=== PATIENT | male | born 1955 | race Caucasian/White ===

== ENCOUNTER → 2019-04-21 | Outpatient (CLI) | payer MEDICARE ==
--- NOTE | 2019-04-21 12:57 | Diagnostic Imaging Report ---
PROCEDURE: CT lumbar spine without contrast. TECHNIQUE: Multiple contiguous axial images were obtained through the lumbar spine without the use of intravenous contrast. Sagittal and coronal reformations were then performed. Auto Exposure Controls were utilized during the CT exam to meet ALARA standards for radiation dose reduction. INDICATION: Back pain, fusion 6 months ago. COMPARISON: Study correlated with CT performed in 2010. FINDINGS: Bilateral chronic L5 spondylolysis defects again noted. Slight grade 1 anterolisthesis of L5 on S1 is about 3 mm and previously 4-5 mm. Interval posterior fusion with bipedicular screws and vertical rods at the L5-S1 level have been placed. There is no hardware fracture and no suspicious lucencies adjacent to the screws. An interbody device is placed at the L5-S1 disc space level. It appears to be within the confines of the endplates. At this point, no appreciable bony bridging across the L5-S1 endplates. There is at least some incorporation of the device with the L5 endplate but no definite bony incorporation with the S1 superior endplate. No convincing evidence for pseudoarthrosis at the surgical time interval is found. Left-sided laminotomy at L5 has been performed. No fluid collection. IMPRESSION: Interval posterior and interbody fusion L5-S1 with improvements in listhesis. Partial incorporation of the device with the L5 inferior endplate but no appreciable branching into the S1 endplate, however, at this time interval, pseudoarthrosis could not be confirmed. Consider followup. No hardware fracture. No adverse development. Decompression with laminectomy but no fluid collection. Dictated by: Dictated on workstation # [id number]
== END ==
LOC: RAD 07:50
PROVIDERS: ATTEND Physician Assistant
DX: M43.16 Spondylolisthesis, lumbar region (principal); Z98.1 Arthrodesis status
CPT/HCPCS: 72131

== ENCOUNTER 2019-08-12 08:45 | Outpatient (RCR) | payer MEDICARE | END 2019-08-12 09:59 | disposition home or self-care (01) | PROVIDERS: ATTEND Physician Assistant | DX: M54.9 Dorsalgia, unspecified (principal); Z98.1 Arthrodesis status ==

== ENCOUNTER 2019-11-19 10:00 | Outpatient (CLI) | payer MEDICARE ==
[~2019-11-19] VITALS: Ht 175.3 cm; Wt 126.3 kg
[~2019-11-19 10:00] MED LIST: GBPN600T PO
== END 2019-11-19 10:11 | disposition home or self-care (01) ==
LOC: PREOP 10:00
PROVIDERS: ATTEND Specialist
DX: Z01.818 Encounter for other preprocedural examination (principal)

== ENCOUNTER 2020-01-18 09:43 | Outpatient (RCR) | payer MEDICARE ==
[~2020-01-18] VITALS: Ht 175.3 cm; Wt 126.3 kg
== END 2020-01-18 15:09 | disposition home or self-care (01) ==
LOC: PREOP 09:43
PROVIDERS: ATTEND Specialist
DX: Z01.812 Encounter for preprocedural laboratory examination (principal)
CPT/HCPCS: 87635

== ENCOUNTER 2020-01-22 07:28 | Day surgery (SDC) | payer MEDICARE ==
[~2020-01-22] VITALS: Ht 175.3 cm; Wt 126.3 kg
[2020-01-22] MEDS ORDERED: LIDOCAINE PF 1% 2 ML VIAL IR PRN (07:45)
[2020-01-22] MEDS ORDERED: POVIDONE (BETADINE) OPHTH SOLN 5% 30 ML OP ONE (07:45)
[2020-01-22] MEDS ORDERED: MOXIFLOXACIN OPHTH SOLN 5 MG/ML 0.3 ML SYRINGE OP ONE (07:45)
[2020-01-22] MEDS ORDERED: TIMOLOL MALEATE 0.5% 5 ML (TIMOPTIC) BTL OU PRN (07:45)
[2020-01-22] MEDS: TETRACAINE 0.5% OPHTH SOLN 4 ML BTL (SINGLE DOSE ONLY) OU PRN ×4 (08:05→08:27)
[2020-01-22 08:12] VITALS: BP 139/99
[2020-01-22] MEDS: PHENYLEPHRINE 10% OPHTH (NEO-SYN) 5 ML BTL OU SCH ×3 (08:17→08:27)
[2020-01-22] MEDS: CYCLOPENTOLATE 1% (CYCLOGYL) 2 ML DROPS OP SCH ×3 (08:17→08:27)
[2020-01-22] MEDS ORDERED: MIDAZOLAM 2 MG/2 ML (VERSED) VIAL ONE (09:09)
--- NOTE | 2020-01-22 09:10 | Ophthalmologist Pre-Op Note ---
Pre-Operative Progress Note H&P Reviewed The H&P was reviewed, patient examined and no changes noted. Date H&P Reviewed: January 22, 2020 Time H&P Reviewed: 09:10 Pre-Op Dx Cataract, Right Eye LUCAS DE LA CRUZ MD January 22, 2020 09:10
--- OUTSIDE RECORDS SUMMARY | 2020-01-22 09:17 | XMS REPORT | Continuity of Care Document ---
Author Organization Unknown Address Unknown Phone Unavailable Allergies Active Description Code Type Severity Reaction Onset Reported/Identified Relationship to Patient Clinical Status Yes No Known Drug Allergies [id number] Drug Allergy Unknown N/A 07/30/2011 Medications There is no data. Problems Date Dx Coded Attending Type Code Diagnosis Diagnosed By SWEET PA, BHAVIN R Ot M54.9 DORSALGIA, UNSPECIFIED SWEET PA, BHAVIN R Ot Z98.1 ARTHRODESIS STATUS 08/01/1508 LUCAS DE LA CRUZ MD Ot Z01.812 ENCOUNTER FOR PREPROCEDURAL LABORATORY E 05/14/2019 SWEET PA, BHAVIN R Ot M43. 16 SPONDYLOLISTHESIS, LUMBAR REGION 05/14/2019 SWEET PA, BHAVIN R Ot Z98. 1 ARTHRODESIS STATUS 07/09/2019 SWEET PA, BHAVIN R Ot M54. 9 DORSALGIA, UNSPECIFIED 07/09/2019 SWEET PA, BHAVIN R Ot Z98. 1 ARTHRODESIS STATUS 07/28/2019 SWEET PA, BHAVIN R Ot M54. 9 DORSALGIA, UNSPECIFIED 07/28/2019 SWEET PA, BHAVIN R Ot Z98. 1 ARTHRODESIS STATUS 08/12/2019 SWEET PA, BHAVIN R Ot M54. 9 DORSALGIA, UNSPECIFIED 08/12/2019 SWEET PA, BHAVIN R Ot Z98. 1 ARTHRODESIS STATUS 11/13/2019 SWEET PA, BHAVIN R Ot M43. 16 SPONDYLOLISTHESIS, LUMBAR REGION 11/13/2019 SWEET PA, BHAVIN R Ot Z98. 1 ARTHRODESIS STATUS 11/20/2019 LUCAS DE LA CRUZ MD Ot Z01.818 ENCOUNTER FOR OTHER PREPROCEDURAL EXAMIN Procedures There is no data. Results Test Result Range Coronavirus SARS-CoV-2 SO 2019 - 0 13:00 Coronavirus Ab [Units/volume] in Serum Negative Negative Encounters ACCT No. Visit Date/Time Discharge Status Pt. Type Provider Facility Loc./Unit Complaint [id number] 01/18/2020 09:43:00 15:09:00 DIS Outpatient LUCAS DE LA CRUZ MD [facility] PREOP CATARACT RIGHT EYE [id number] 11/20/2019 11:30:00 23:59:59 CLS Preadmit LUCAS DE LA CRUZ MD [facility] CATARACT RIGHT EYE [id number] 11/19/2019 10:00:00 10:11:00 DIS Outpatient LUCAS DE LA CRUZ MD [facility] PREOP CATARACT RIGHT EYE [id number] 08/12/2019 08:45:00 09:59:00 DIS Outpatient BHAVIN BRAGA [facility] REHAB S/P FUSION BACK PAIN [id number] 04/21/2019 07:50:00 019 23:59:59 CLS Outpatient BHAVIN BRAGA [facility] RAD LUMBAR FUSION [id number] 06/03/2013 08:50:00 013 23:59:59 CLS Outpatient [id number] 01/29/2020 09:30:00 P EN Margemit LUCAS DE LA CRUZ MD [facility] CATARACT LEFT EYE [id number] 01/22/2020 07:28:[address] Outpatient LUCAS DE LA CRUZ MD [facility] CATARACT RIGHT EYE
[2020-01-22] MEDS ORDERED: acetaZOLAMIDE ER 500 MG CAP (DIAMOX SEQUELS) PO ONE (09:30)
--- NOTE | 2020-01-22 09:38 | Ophthalmology Operative Report ---
Cataract removal/placement IOL PREOPERATIVE DIAGNOSIS: Cataract Right Eye POSTOPERATIVE DIAGNOSIS: Cataract Right Eye PROCEDURE: Cataract removal and placement of posterior chamber implant, right eye SURGEON: Doyle De La Cruz ANESTHESIA: Topical with sedation COMPLICATIONS: None ESTIMATED BLOOD LOSS: Minimal DESCRIPTION OF PROCEDURE: After proper informed consent was obtained, the patient, a 64 male, was taken to the Operating Room and the right eye was anesthetized with tetracaine. The right eye was then prepped and draped in the usual manner. A wire lid speculum was placed. A paracentesis was made at the left hand position. Preservative free lidocaine was injected into the anterior chamber followed by viscoelastic. A clear corneal incision was made in the temporal position. A capsulorrhexis was preformed and the central nuclear and cortical material were removed. The posterior capsule was polished and Sid 23.5 AU00T0 IOL was placed into the capsular bag. The residual viscoelastic was aspirated and balanced saline solution was injected into the anterior chamber. Moxifloxacin was injected into the anterior chamber. The wound was checked and found to be water tight. The patient tolerated the procedure well without complications. DOYLE DE LA CRUZ MD January 22, 2020 09:38
[2020-01-22 09:45] VITALS: BP 125/84
--- NOTE | 2020-01-22 11:22 | Anesthesia-General Post-Op ---
MAC Patient Condition Mental Status/LOC: Same as Preop Cardiovascular: Satisfactory Nausea/Vomiting: Absent Respiratory: Satisfactory Pain: Controlled Complications: Absent Post Op Complications Complications None Follow Up Care/Instructions Patient Instructions None needed. Anesthesiology Discharge Order Discharge Order Patient is doing well, no complaints, stable vital signs, no apparent adverse anesthesia problems. No complications reported per nursing. CAROL ANN GHOSH CRNA January 22, 2020 11:22
== END 2020-01-22 09:45 | disposition home or self-care (01) ==
LOC: SDC 07:28
PROVIDERS: ATTEND Specialist

== ENCOUNTER 2020-01-29 08:05 | Day surgery (SDC) | payer MEDICARE ==
[~2020-01-29] VITALS: Ht 172.7 cm; Wt 126.3 kg
[2020-01-29 08:10] VITALS: BP 147/99
[2020-01-29] MEDS ORDERED: MOXIFLOXACIN OPHTH SOLN 5 MG/ML 0.3 ML SYRINGE OP ONE (08:15)
[2020-01-29] MEDS ORDERED: LIDOCAINE PF 1% 2 ML VIAL IR PRN (08:15)
[2020-01-29] MEDS ORDERED: TIMOLOL MALEATE 0.5% 5 ML (TIMOPTIC) BTL OU PRN (08:15)
[2020-01-29] MEDS ORDERED: POVIDONE (BETADINE) OPHTH SOLN 5% 30 ML OP ONE (08:15)
[2020-01-29] MEDS: TETRACAINE 0.5% OPHTH SOLN 4 ML BTL (SINGLE DOSE ONLY) OU PRN ×4 (08:25→08:41)
[2020-01-29] MEDS: CYCLOPENTOLATE 1% (CYCLOGYL) 2 ML DROPS OP SCH ×3 (08:31→08:41)
[2020-01-29] MEDS: PHENYLEPHRINE 10% OPHTH (NEO-SYN) 5 ML BTL OU SCH ×3 (08:31→08:41)
--- OUTSIDE RECORDS SUMMARY | 2020-01-29 08:44 | XMS REPORT | Continuity of Care Document ---
Author Organization Unknown Address Unknown Phone Unavailable Allergies Active Description Code Type Severity Reaction Onset Reported/Identified Relationship to Patient Clinical Status Yes No Known Drug Allergies [id number] Drug Allergy Unknown N/A 07/30/2011 Medications There [...] Status Pt. Type Provider Facility Loc./Unit Complaint [id number] 01/22/2020 07:28:00 09:45:00 DIS Outpatient LUCAS DE LA CRUZ MD [facility] CATARACT RIGHT EYE [id number] 01/18/2020 09:43:00 15:09:00 DIS Outpatient LUCAS DE LA CRUZ MD [facility] PREOP CATARACT RIGHT EYE [id number] 11/20/2019 11:30:00 23:59:59 CLS LUCAS Sewell MD [facility] CATARACT RIGHT EYE [id number] 11/19/2019 10:00:00 10:11:00 DIS Outpatient LUCAS DE LA CRUZ MD [facility] PREOP CATARACT RIGHT EYE [id number] 08/12/2019 08:45:00 09:59:00 DIS Outpatient BHAVIN BRAGA [facility] REHAB S/P FUSION BACK PAIN [id number] 04/21/2019 07:50:00 019 23:59:59 CLS Outpatient BHAVIN BRAGA [facility] RAD LUMBAR FUSION [id number] 06/03/2013 08:50:00 013 23:59:59 CLS Outpatient [id number] 01/29/2020 09:30:00 P EN LUCAS Sewell MD [facility] CATARACT LEFT EYE
[2020-01-29] MEDS ORDERED: MIDAZOLAM 2 MG/2 ML (VERSED) VIAL ONE (09:10)
--- NOTE | 2020-01-29 09:14 | Ophthalmologist Pre-Op Note ---
Pre-Operative Progress Note H&P Reviewed The H&P was reviewed, patient examined and no changes noted. Date H&P Reviewed: January 29, 2020 Time H&P Reviewed: 09:14 Pre-Op Dx Cataract, Left Eye LUCAS DE LA CRUZ MD January 29, 2020 09:14
[2020-01-29] MEDS ORDERED: acetaZOLAMIDE ER 500 MG CAP (DIAMOX SEQUELS) PO ONE (09:30)
--- NOTE | 2020-01-29 09:36 | Ophthalmology Operative Report ---
Cataract removal/placement IOL PREOPERATIVE DIAGNOSIS: Cataract Left Eye POSTOPERATIVE DIAGNOSIS: Cataract Left Eye PROCEDURE: Cataract removal and placement of posterior chamber implant, left eye SURGEON: Doyle De La Cruz ANESTHESIA: Topical with sedation COMPLICATIONS: None ESTIMATED BLOOD LOSS: Minimal DESCRIPTION OF PROCEDURE: After proper informed consent was obtained, the patient, a 64 male, was taken to the Operating Room and the left eye was anesthetized with tetracaine. The left eye was then prepped and draped in the usual manner. A wire lid speculum was placed. A paracentesis was made at the left hand position. Preservative free lidocaine was injected into the anterior chamber followed by viscoelastic. A clear corneal incision was made in the temporal position. A capsulorrhexis was preformed and the central nuclear and cortical material were removed. The posterior capsule was polished and an Sid 23.0 AU00T0 was placed into the capsular bag. The residual viscoelastic was aspirated and balanced saline solution was injected into the anterior chamber. Moxifloxacin was injected into the anterior chamber. The wound was checked and found to be water tight. The patient tolerated the procedure well without complications. DOYLE DE LA CRUZ MD January 29, 2020 09:36
[2020-01-29 09:45] VITALS: BP 146/92
--- NOTE | 2020-01-29 12:40 | Anesthesia-General Post-Op ---
MAC Patient Condition Mental Status/LOC: Same as Preop Cardiovascular: Satisfactory Nausea/Vomiting: Absent Respiratory: Satisfactory Pain: Controlled Complications: Absent Post Op Complications Complications None Follow Up Care/Instructions Patient Instructions None needed. Anesthesiology Discharge Order Discharge Order Patient is doing well, no complaints, stable vital signs, no apparent adverse anesthesia problems. No complications reported per nursing. RICHARD SOLANO CRNA January 29, 2020 12:40
== END 2020-01-29 09:45 | disposition home or self-care (01) ==
LOC: SDC 08:05
PROVIDERS: ATTEND Specialist
DX: H25.12 Age-related nuclear cataract, left eye (principal); E66.01 Morbid (severe) obesity due to excess calories; Z68.41 Body mass index [BMI] 40.0-44.9, adult; Z79.899 Other long term (current) drug therapy; Z87.891 Personal history of nicotine dependence; Z80.1 Family history of malignant neoplasm of trachea, bronchus and lung

== ENCOUNTER 2020-12-25 09:38 | Emergency (ER) | payer MEDICARE ==
[~2020-12-25] VITALS: Ht 172.7 cm; Wt 131.8 kg
[2020-12-25] MEDS ORDERED: ASPIRIN 81 MG CHEW (CHILDREN'S ASA) ONE (10:09)
--- NOTE | 2020-12-25 10:15 | ED Cardiac General ---
History of Present Illness General Chief Complaint: Cardiac/General Problems Stated Complaint: SOB,CHEST TIGHTNESS Nursing Triage Note: AMB TO ROOM X 1 WEEK AND FELT SOA AND CHEST PRESSURE WORSE WHEN LYING DOWN. HAS HAD BOTH COVID VACCAINE . Source: patient Exam Limitations: no limitations History of Present Illness Date Seen by Provider: Dec 25, 2020 Time Seen by Provider: 09:55 Initial Comments Patient is a 65-year-old male who presents to the emergency department today with a chief complaint of progressive exertional dyspnea, chest tightness, pre ssure when laying flat or reclining. Patient states that he has had this chest tightness for "weeks". He states that it is currently about a "4". It is worse anytime he gets up and does any activity. The tightness/pressure does not radiate anywhere. He states a couple of weeks ago he had an episode where he got up out of his recliner chair and felt lightheaded and dizzy and had chest tightness with nausea and diaphoresis. This spontaneously resolved. Patient denies being a diabetic. He is not on medications for hypertension. He does have a primary care doctor and he does his yearly well visits. He quit smoking 5 or 6 years ago. He has no family history of coronary artery disease that he is aware of. He denies recent illness such as fevers, chills, URI symptoms, GI or complaints. All other review of systems reviewed and negative except as stated. Timing/Duration: 1 week, getting worse Severity: moderate Activities at Onset: activity Prior CP/Workup: no prior chest pain, no prior cardiac workup NTG SL [employer]TING SUPERVISOR: No ASA po [employer]PERVISOR: No Allergies and Home Medications Allergies Coded Allergies: No Known Drug Allergies (Unverified , 07/30/11) Home Medications No Active Prescriptions or Reported Meds Patient Home Medication List Home Medication List Reviewed: Yes Review of Systems Review of Systems Constitutional: see HPI EENTM: No Symptoms Reported Respiratory: SOA With Exertion, SOA at Rest Cardiovascular: Chest Pain, Palpitations Gastrointestinal: No Symptoms Reported Genitourinary: No Symptoms Reported Musculoskeletal: no symptoms reported Skin: no symptoms reported Psychiatric/Neurological: No Symptoms Reported All Other Systems Reviewed Negative Unless Noted: Yes Past Wjehjtq-Obprfg-Cgauxo Hx Patient Social History Alcohol Use: Denies Use Smoking Status: Never a Smoker Recent Infectious Disease Expo: No Immunizations Up To Date Date of Pneumonia Vaccine: May 03, 2012 Date of Influenza Vaccine: May 03, 2012 Past Medical History Surgeries: Yes Orthopedic Respiratory: No Cardiac: No Neurological: No Genitourinary: No Gastrointestinal: No Endocrine: No HEENT: No Integumentary: No Physical Exam Vital Signs Vital Signs - First Documented 12/25/20 09:38 Temp 36.8 Pulse 115 Resp 22 B/P (MAP) 144/92 (109) Pulse Ox 93 O2 Delivery Room Air Capillary Refill : Less Than 3 Seconds Height, Weight, BMI Height: '" Weight: lbs. oz. kg; 44.00 BMI Method:Estimated General Appearance: No Apparent Distress, WD/WN HEENT: PERRL/EOMI Neck: Normal Inspection Respiratory: Lungs Clear, Normal Breath Sounds, No Accessory Muscle Use, No Respiratory Distress Cardiovascular: Regular Rate, Rhythm, Tachycardia Gastrointestinal: Non Tender, Soft Extremity: Normal Capillary Refill, Normal Inspection, Normal Range of Motion, Pedal Edema (1+ bilateral) Neurologic/Psychiatric: Alert, Oriented x3, No Motor/Sensory Deficits Skin: Normal Color, Warm/Dry Progress/Results/Core Measures Results/Orders Lab Results Laboratory Tests Test 12/25/20 09:40 Range/Units White Blood Count 7.1 4.3-11.0 10^3/uL Red Blood Count 5.32 4.30-5.52 10^6/uL Hemoglobin 14.7 13.3-17.7 g/dL Hematocrit 46 40-54 % Mean Corpuscular Volume 86 80-99 fL Mean Corpuscular Hemoglobin 28 25-34 pg Mean Corpuscular Hemoglobin Concent 32 32-36 g/dL Red Cell Distribution Width 14.3 10.0-14.5 % Platelet Count 354 130-400 10^3/uL Mean Platelet Volume 10.2 9.0-12.2 fL Immature Granulocyte % (Auto) 0 % Neutrophils (%) (Auto) 67 42-75 % Lymphocytes (%) (Auto) 22 12-44 % Monocytes (%) (Auto) 9 0-12 % Eosinophils (%) (Auto) 1 0-10 % Basophils (%) (Auto) 0 0-10 % Neutrophils # (Auto) 4.8 1.8-7.8 10^3/uL Lymphocytes # (Auto) 1.6 1.0-4.0 10^3/uL Monocytes # (Auto) 0.6 0.0-1.0 10^3/uL Eosinophils # (Auto) 0.1 0.0-0.3 10^3/uL Basophils # (Auto) 0.0 0.0-0.1 10^3/uL Immature Granulocyte # (Auto) 0.0 0.0-0.1 10^3/uL D-Dimer 1.48 H 0.00-0.49 UG/ML Sodium Level 137 135-145 MMOL/L Potassium Level 4.0 3.6-5.0 MMOL/L Chloride Level 99 98-107 MMOL/L Carbon Dioxide Level 29 21-32 MMOL/L Anion Gap 9 5-14 MMOL/L Blood Urea Nitrogen 9 7-18 MG/DL Creatinine 1.05 0.60-1.30 MG/DL Estimat Glomerular Filtration Rate > 60 BUN/Creatinine Ratio 9 Glucose Level 141 H 70-105 MG/DL Calcium Level 9.3 8.5-10.1 MG/DL Total Creatine Kinase 44 30-200 U/L Creatine Kinase MB 1.1 <6.6 NG/ML Troponin I < 0.028 <0.028 NG/ML B-Type Natriuretic Peptide 144.1 H <100.0 PG/ML Thyroid Stimulating Hormone (TSH) 2.43 0.35-4.94 UIU/ML My Orders Orders - RADHA SOLARES MD Ed Iv/Invasive Line Start (12/25/20 10:10) Cbc With Automated Diff (12/25/20 10:10) Basic Metabolic Panel (12/25/20 10:10) Creatine Kinase (12/25/20 10:10) Creatine Kinase Mb (12/25/20 10:10) Troponin I (12/25/20 10:10) BNP (12/25/20 10:10) Chest 1 View, Ap/Pa Only (12/25/20 10:10) Thyroid Stimulating Hormone (12/25/20 10:10) Aspirin Chewable Tablet (Baby Aspirin Ch (12/26/20 09:00) Fibrin Degradation Products (12/25/20 10:15) Aspirin Chewable Tablet (Baby Aspirin Ch (12/25/20 10:09) Ct Angio Chest W (12/25/20 11:08) Iohexol Injection (Omnipaque 350 Mg/Ml 1 (12/25/20 11:30) Received Contrast (Hold Metformin- Contr (12/25/20 11:30) Sodium Chloride Flush (Catheter Flush Sy (12/25/20 11:30) Ns (Ivpb) (Sodium Chloride 0.9% Ivpb Bag (12/25/20 11:30) Furosemide Injection (Lasix Injection) (12/25/20 12:30) Medications Given in ED Current Medications Medications Dose Ordered Sig/Sergio Route Start Time Stop Time Status Last Admin Dose Admin Iohexol 100 ml ONCE ONCE IV 12/25/20 11:30 12/25/20 11:31 DC 12/25/20 11:28 88 ML Sodium Chloride 10 ml NEEDED PRN IV 12/25/20 11:30 12/25/20 11:28 10 ML Sodium Chloride 100 ml ONCE ONCE IV 12/25/20 11:30 12/25/20 11:31 DC 12/25/20 11:28 80 ML Vital Signs/I&O 12/25/20 09:38 Temp 36.8 Pulse 115 Resp 22 B/P (MAP) 144/92 (109) Pulse Ox 93 O2 Delivery Room Air Blood Pressure Mean: 109 Progress Progress Note : Time: 12:26 Progress Note Patient seen and examined, 65-year-old with report of chest tightness and shortness of breath over the last several weeks. Patient states this tightness has been constant. He states his shortness of breath worsens with exertion. Evaluation today includes a physical exam, EKG, chest x-ray, basic laboratory studies including a BNP and TSH. Patient also had CT angiography of the chest. Work-up demonstrates cardiomegaly with mild evidence of congestive failure. His troponin is negative. BNP is 144. He is actually satting fairly well but after CAT scan was down to 89 or 90% so was placed on a little bit of oxygen. Is given Lasix 20 mg here in the department. Patient has no prior history of congestive failure. I feel like given the presentation and chronicity of symptoms that the patient is stable for outpatient follow-up. The patient will be referred to Dr. Harris for follow-up of his cardiomegaly and congestive failure symptoms. He is comfortable and desirous of discharge. He is agreeable with the plan of care. I am not going to put him on Lasix on an outpatient basis but will as stated give him a dose here in the department. I will recommend that he takes a baby aspirin daily as well. He is given good return precautions which include if his chest tightness turns into chest pain or pressure or he has nausea sweating etc. with the pain he needs to come back to the emergency department. He verbalizes understanding. All questions are sought and answered. Patient is stable for discharge. Initial ECG Impression Date: Dec 25, 2020 Initial ECG Impression Time: 09:51 Initial ECG Rate: 103 Initial ECG Rhythm: Normal Sinus, S.Tach Initial ECG Impression: Normal, Nonspecific Changes Comment [facility]'s Diagnostic Imaging Diagonstic Imaging: Xray, CT Plain Films/CT/US/NM/MRI: chest Comments [facility] [place], [place] NAME: DEEPALI HOLM [facility] REC#: [id number] PT STATUS: REG ER : 1955 PHYSICIAN: RADHA SOLARES MD ADMIT DATE: 12/25/20/ER Draft Date of Exam:12/25/20 CHEST 1 VIEW, AP/PA ONLY HISTORY: Chest tightness and shortness of breath COMPARISON: None TECHNIQUE: Frontal view of the chest. FINDINGS: There is mild cardiomegaly with diffuse interstitial prominence. No airspace consolidation is seen. There is no pleural effusion or pneumothorax. IMPRESSION:. Mild cardiomegaly with interstitial prominence, may represent a mild interstitial edema. Dictated on workstation # [id number] Dict: 12/25/20 1027 Trans: 12/25/20 1029 [facility] [id number] Interpreted by: AJ MARIE MD Electronically signed by: [facility] [place] [place] NAME: DEEPALI HOLM [facility] REC#: [id number] PT STATUS: REG ER : 1955 PHYSICIAN: RADHA SOLARES MD ADMIT DATE: 12/25/20/ER Draft Date of Exam:12/25/20 CT ANGIO CHEST W PROCEDURE: CT angiography of the chest with contrast. TECHNIQUE: Multiple contiguous axial images were obtained through the chest after uneventful bolus administration of intravenous contrast. 3D reconstructed CTA MIP acquisitions were also performed. Auto Exposure Controls were utilized during the CT exam to meet ALARA standards for radiation dose reduction. INDICATION: Tachycardia, chest tightness, elevated D-dimer COMPARISON: None FINDINGS: The pulmonary arteries are diagnostic to the segmental level. No filling defects are seen to indicate a pulmonary embolus. The cardiac silhouette is normal in size. There is no pericardial effusion. There is an enlarged lymph node at the aortopulmonary window which measures 1.6 cm in the short axis (image 54 series 2). There is an enlarged subcarinal lymph node which measures 2 cm in short axis (image 80 series 2). There are mildly prominent hilar lymph nodes bilaterally. No axillary lymphadenopathy is seen. There are minimal bilateral pleural effusions. Patchy airspace opacities are seen in the lungs bilaterally, specifically the lower lobes, right greater than left. There is mild prominence of the interlobular septa. No acute osseous abnormality is seen in the thoracic spine. Alignment appears normal. Imaged portions of the upper abdomen demonstrate no acute abnormality. There is a nonspecific hypodense lesion in the right liver which measures 1.5 cm in diameter. Nonemergent follow-up using hepatic contrast protocol could be considered in the future. IMPRESSION: 1. No pulmonary embolus. 2. Airspace opacities in the lower lobes, right greater than left, concerning for infection. 3. Minimal bilateral pleural effusions. 4. Mediastinal and hilar adenopathy. This is likely reactive to the pulmonary findings however malignancy such as lymphoma or metastasis is not excluded. 5. Mild prominence of the interlobular septa, can be seen with mild edema. Dictated on workstation # [id number] Dict: 12/25/20 1138 Trans: 12/25/20 1158 [facility] [id number] Interpreted by: AJ MARIE MD Electronically signed by: Departure Impression Primary Impression: Dyspnea on exertion Additional Impression: CHF with unknown LVEF Disposition: 01 HOME, SELF-CARE Condition: Stable Departure-Patient Inst. Decision time for Depature: 12:29 Referrals: GRISELDA HARRIS MD FACP [facility] SHELTON SOLER MD (PCP/Family) Primary Care Physician Patient Instructions: CHF Add. Discharge Instructions: Please call Dr. Harris's office tomorrow for a follow-up appointment this week. Come back to the emergency department if you develop chest pain or pressure especially with worsening shortness of breath, nausea sweating or any other emergent concerning symptoms. Take a baby aspirin daily. You will also need to follow-up with your primary care physician. Scripts No Active Prescriptions or Reported Meds Copy Copies To 1: GRISELDA HARRIS MD FACP [facility] RDAHA SOLARES MD Dec 25, 2020 10:15
--- NOTE | 2020-12-25 10:30 | Diagnostic Imaging Report ---
HISTORY: Chest tightness and shortness of breath COMPARISON: None TECHNIQUE: Frontal view of the chest. FINDINGS: There is mild cardiomegaly with diffuse interstitial prominence. No airspace consolidation is seen. There is no pleural effusion or pneumothorax. IMPRESSION:. Mild cardiomegaly with interstitial prominence, may represent a mild interstitial edema. Dictated by: Dictated on workstation # [id number]
[2020-12-25 10:31] LABS: BASOPHILS % (AUTO) 0 % (0-10); EOSINOPHILS # (AUTO) 0.1 10^3/uL (0.0-0.3); EOSINOPHILS % (AUTO) 1 % (0-10); HEMATOCRIT 46 % (40-54); HEMOGLOBIN 14.7 g/dL (13.3-17.7); LYMPHOCYTES # (AUTO) 1.6 10^3/uL (1.0-4.0); LYMPHOCYTES % (AUTO) 22 % (12-44); MEAN CORPUSCULAR HEMOGLOBIN 28 pg (25-34); MEAN CORPUSCULAR HGB CONC 32 g/dL (32-36); MEAN CORPUSCULAR VOLUME 86 fL (80-99); MEAN PLATELET VOLUME 10.2 fL (9.0-12.2); MONOCYTES # (AUTO) 0.6 10^3/uL (0.0-1.0); MONOCYTES % (AUTO) 9 % (0-12); NEUTROPHILS # (AUTO) 4.8 10^3/uL (1.8-7.8); NEUTROPHILS % (AUTO) 67 % (42-75); PLATELET COUNT 354 10^3/uL (130-400); WHITE BLOOD COUNT 7.1 10^3/uL (4.3-11.0)
[2020-12-25 10:44] LABS: BUN/CREATININE RATIO 9; CALCIUM 9.3 MG/DL (8.5-10.1); CARBON DIOXIDE 29 MMOL/L (21-32); CHLORIDE 99 MMOL/L (98-107); CREATINE KINASE 44 U/L (30-200); CREATININE SERUM 1.05 MG/DL (0.60-1.30); GFR ESTIMATED > 60; GLUCOSE 141 MG/DL (70-105); SODIUM 137 MMOL/L (135-145)
[2020-12-25 11:04] LABS: CREATINE KINASE MB 1.1 NG/ML (<6.6)
[2020-12-25] MEDS ORDERED: HOLD METFORMIN - RECEIVED CONTRAST 20 ML VIAL IV SCH (11:30)
[2020-12-25] MEDS ORDERED: CATHETER FLUSH 10 ML SYR IV PRN (11:30)
[2020-12-25] MEDS ORDERED: NS 100 ML (IVPB) BAG IV ONE (11:30)
[2020-12-25] MEDS ORDERED: IOHEXOL 350 MG/ML 100 ML (OMNIPAQUE 350) VIAL IV ONE (11:30)
--- NOTE | 2020-12-25 12:00 | Diagnostic Imaging Report ---
PROCEDURE: CT angiography of the chest with contrast. TECHNIQUE: Multiple contiguous axial images were obtained through the chest after uneventful bolus administration of intravenous contrast. 3D reconstructed CTA MIP acquisitions were also performed. Auto Exposure Controls were utilized during the CT exam to meet ALARA standards for radiation dose reduction. INDICATION: Tachycardia, chest tightness, elevated D-dimer COMPARISON: None FINDINGS: The pulmonary arteries are diagnostic to the segmental level. No filling defects are seen to indicate a pulmonary embolus. The cardiac silhouette is normal in size. There is no pericardial effusion. There is an enlarged lymph node at the aortopulmonary window which measures 1.6 cm in the short axis (image 54 series 2). There is an enlarged subcarinal lymph node which measures 2 cm in short axis (image 80 series 2). There are mildly prominent hilar lymph nodes bilaterally. No axillary lymphadenopathy is seen. There are minimal bilateral pleural effusions. Patchy airspace opacities are seen in the lungs bilaterally, specifically the lower lobes, right greater than left. There is mild prominence of the interlobular septa. No acute osseous abnormality is seen in the thoracic spine. Alignment appears normal. Imaged portions of the upper abdomen demonstrate no acute abnormality. There is a nonspecific hypodense lesion in the right liver which measures 1.5 cm in diameter. Nonemergent follow-up using hepatic contrast protocol could be considered in the future. IMPRESSION: 1. No pulmonary embolus. 2. Airspace opacities in the lower lobes, right greater than left, concerning for infection. 3. Minimal bilateral pleural effusions. 4. Mediastinal and hilar adenopathy. This is likely reactive to the pulmonary findings however malignancy such as lymphoma or metastasis is not excluded. 5. Mild prominence of the interlobular septa, can be seen with mild edema. Dictated by: Dictated on workstation # [id number]
[2020-12-25] MEDS ORDERED: FUROSEMIDE 40 MG/4 ML INJ (LASIX) IVP ONE (12:30)
[2020-12-25 12:46] VITALS: BP 139/84
[2020-12-26] MEDS ORDERED: ASPIRIN 81 MG CHEW (CHILDREN'S ASA) PO SCH (09:00)
== END 2020-12-25 12:46 | disposition home or self-care (01) ==
LOC: EDUNIT# 09:38 → ER 09:41
DX: R06.09 Other forms of dyspnea (principal); I50.1 Left ventricular failure, unspecified
CPT/HCPCS: 36415; 71045; 71275; 80048; 82550; 82553; 83880; 84443; 84484; 85025; 85379; 93005

== ENCOUNTER → 2021-01-09 | Outpatient (CLI) | payer MEDICARE | LOC: CARD 11:00 | PROVIDERS: ATTEND Internal Medicine Cardiovascular Disease | DX: I51.7 Cardiomegaly (principal) | CPT/HCPCS: 93306 ==

== ENCOUNTER → 2021-01-24 | Outpatient (CLI) | payer MEDICARE ==
[~2021-01-24] VITALS: Ht 172 cm; Wt 122.0 kg
[~2021-01-24] MED LIST changes: +CATHETER FLUSH 10 ML SYR IV PRN; +REGADENOSON 0.4 MG/5 ML SYR (LEXISCAN) IV ONE
[2021-01-24 08:59] VITALS: BP 136/81
--- NOTE | 2021-01-24 15:39 | STRESS TEST ---
DATE OF SERVICE: 01/24/2021 RESTING AND POST REGADENOSON TECHNETIUM-99M TETROFOSMIN SPECT CT IMAGING ORDERING PHYSICIAN: Kenisha Conklin APRN OTHER PHYSICIAN: Dr. De La Garza. CLINICAL DIAGNOSIS: Congestive heart failure. Baseline images were carried out after injection of 10.79 mCi of technetium-99m Tetrofosmin. This was followed by 0.4 mg of Regadenoson and 29.6 mCi of technetium-99m Tetrofosmin for stress imaging. The electrocardiogram showed sinus rhythm with isolated premature ventricular contractions. The electrocardiogram did not change significantly with the Regadenoson infusion. Review of images at rest and following stress indicates a somewhat patchy tracer uptake. There appears to be anteroapical perfusion defect, which appears to be partially transient. There is global hypokinesis of the left ventricle that appears somewhat more marked at the anteroapical segment. Left ventricular end diastolic volume is 212 mL. Left ventricular ejection fraction is calculated to be 31%. TID is absent (1.07). CONCLUSIONS: 1. Dilated cardiomyopathy with global hypokinesis (somewhat more marked at the anteroapical segment) and with a calculated ejection fraction of 31%. 2. Anteroapical myocardial infarction is suggested on this study with a moderate amount of stephanie-infarct ischemia. Job ID: [id number] DocumentID: [id number] Dictated Date: 01/24/2021 15:15:26 Referral Coordinator Date: 01/24/2021 15:38:32 Dictated By: GRISELDA DE LA GARZA MD, MA, FACP, FACC, MTDD
== END ==
LOC: CARD 08:00
PROVIDERS: ATTEND Nurse Practitioner Family
DX: I50.9 Heart failure, unspecified (principal)
CPT/HCPCS: 78452; 93017; A9502

== ENCOUNTER 2021-02-07 10:06 | Day surgery (SDC) | payer MEDICARE ==
[~2021-02-07] VITALS: Ht 172 cm; Wt 137.0 kg
[~2021-02-07 10:06] MED LIST changes: -CATHETER FLUSH 10 ML SYR IV PRN; +HEParin (CATH LAB) 2,000 ML IV ONE; +LIDOCAINE 1% INJ 20 ML 20 ML VIAL ONE; +NS IV 1000 ML 1,000 ML ONE; -REGADENOSON 0.4 MG/5 ML SYR (LEXISCAN) IV ONE
[2021-02-07] MEDS ORDERED: NS IV 1000 ML 1,000 ML IV SCH (10:15)
[2021-02-07 10:29] VITALS: BP 130/77
[2021-02-07] MEDS ORDERED: METO50TA7 PO (10:37)
[2021-02-07] MEDS ORDERED: APIX5TAB PO (10:37)
[2021-02-07] MEDS ORDERED: FURO-124 PO (10:37)
[2021-02-07] MEDS ORDERED: POTA10TA36 PO (10:37)
[2021-02-07 10:41] LABS: HEMATOCRIT 49 % (40-54); HEMOGLOBIN 15.8 g/dL (13.3-17.7); MEAN CORPUSCULAR HEMOGLOBIN 28 pg (25-34); MEAN CORPUSCULAR HGB CONC 32 g/dL (32-36); MEAN CORPUSCULAR VOLUME 86 fL (80-99); MEAN PLATELET VOLUME 10.1 fL (9.0-12.2); PLATELET COUNT 303 10^3/uL (130-400); WHITE BLOOD COUNT 6.2 10^3/uL (4.3-11.0)
[2021-02-07 10:58] LABS: PROTHROMBIN TIME PATIENT 13.7 SEC (12.2-14.7)
[2021-02-07] MEDS ORDERED: fentaNYL INJ 100 MCG/2 ML AMP ONE (10:59)
[2021-02-07] MEDS ORDERED: MIDAZOLAM 5 MG/5 ML (VERSED) VIAL ONE (10:59)
[2021-02-07 11:04] LABS: ALANINE AMINOTRANSFERASE 26 U/L (0-55); ALBUMIN 4.3 GM/DL (3.2-4.5); ALKALINE PHOSPHATASE 60 U/L (40-136); BILIRUBIN,TOTAL 0.4 MG/DL (0.1-1.0); BUN/CREATININE RATIO 17; CALCIUM 9.3 MG/DL (8.5-10.1); CARBON DIOXIDE 28 MMOL/L (21-32); CHLORIDE 101 MMOL/L (98-107); CHOLESTEROL 172 MG/DL (< 200); CREATININE SERUM 1.12 MG/DL (0.60-1.30); GFR ESTIMATED > 60; GLUCOSE 124 MG/DL (70-105); HDL CHOLESTEROL 35 MG/DL (40-60); POTASSIUM 4.3 MMOL/L (3.6-5.0); SODIUM 137 MMOL/L (135-145); TOTAL PROTEIN 7.4 GM/DL (6.4-8.2); TRIGLYCERIDES 196 MG/DL (<150); VLDL CHOLESTEROL 39 MG/DL (5-40)
[2021-02-07] MEDS ORDERED: HEParin 1000 UNIT/ML (10ML VIAL) FOR BOLUS ONE (11:40)
[2021-02-07] MEDS ORDERED: EPTIFIBATIDE BOLUS 20 ML IV ONE (11:40)
[2021-02-07] MEDS ORDERED: CLOPIDOGREL 300 MG (PLAVIX) TABLET PO ONE (12:09)
[2021-02-07] MEDS ORDERED: ASPIRIN 81 MG CHEW (CHILDREN'S ASA) ONE (12:09)
--- NOTE | 2021-02-07 12:23 | Cardiac Procedure Note-CS/ASA ---
Pre-Procedure Note Pre-Op Procedure Note H&P Reviewed The H&P was reviewed, patient examined and no changes noted. Date H&P Reviewed: Feb 07, 2021 Time H&P Reviewed: 11:15 Conscious Sedation Pre-Proced Time 11:15 ASA Score 3 For ASA 3 and 4: Consider anesthesia and medical clearance. Also, for patients with a history of failed moderate sedation consider anesthesia. Airway Lungs Heart ASA score ASA 1: a normal healthy patient ASA 2: a patient with a mild systemic disease (mid diabetes, controlled hypertension, obesity ASA 3: a patient with a severe systemic disease that limits activity (angina, COPD, prior Myocardial infarction) ASA 4: a patient with an incapacitating disease that is a constant threat to life (CHF, renal failure) ASA 5: a moribund patient not expected to survive 24 hrs. (ruptured aneurysm) ASA 6: a declared brain- patient whose organs are being harvested. For emergent operations, add the letter E after the classification Mallampati Classification Grade 2 Sedation Plan Analgesia, Amnesia, Plan communicated to team members, Discussed options with patient/fam, Discussed risks with patient/fam The patient is an appropriate candidate to undergo the planned procedure, sedation, and anesthesia. The patient immediately re-assessed prior to indication. GRISELDA DE LA GARZA MD FACP FAC CCDS Feb 07, 2021 12:23
[2021-02-07] MEDS ORDERED: PATIENT MAY USE OWN MEDS, ALL PO SCH (12:30)
[2021-02-07] MEDS ORDERED: ACETAMINOPHEN 325 MG TABLET PO PRN (12:30)
--- NOTE | 2021-02-07 13:00 | CARDIAC CATHETERIZATION ---
DATE OF SERVICE: 02/07/2021 CARDIAC CATHETERIZATION REPORT AND CORONARY INTERVENTION REPORT INDICATION FOR PROCEDURE: The patient is a 65-year-old gentleman, who has recently been diagnosed with congestive heart failure. He has had increasing symptoms. Cardiac catheterization was carried out today after having obtained an informed consent. DESCRIPTION OF PROCEDURE: He was brought to the cardiac catheterization laboratory in a fasting state. Right groin was prepared and draped in the usual sterile fashion. Lidocaine 1% was used for local anesthesia. Modified Seldinger technique was used to advance a 5-Georgian sheath in the right femoral artery. A 5-Georgian JL4 catheter was used for left coronary angiography. A 5-Georgian JR4 catheter was used for right coronary angiography. A 5-Georgian pigtail catheter was used for left heart catheterization and left ventricular angiography. Subsequently, we carried out percutaneous intervention to the left circumflex artery that is described below. PERCUTANEOUS INTERVENTION TO THE LEFT CIRCUMFLEX ARTERY: We exchanged the sheath over a wire for a 6-Georgian sheath. We gave 8000 units of intravenous heparin. A double bolus of Integrilin was also given during the procedure. We used a 6-Georgian JL4 guide catheter to engage the left coronary artery. We used a ChoICE floppy wire to cross the lesion in the distal left circumflex artery and the tip was placed in the distal vessel. We advanced a Concepción 2.75 x 18 mm stent to the lesion. This was deployed at 16 atmospheres. Subsequent angiography revealed 0% residual stenosis at the site of 80% to 90% stenosis in the distal left circumflex. The patient tolerated the procedure well. Angioplasty equipment was removed. Sheath was sutured in place. The patient was transferred to the floor. HEMODYNAMICS: Left ventricular end-diastolic pressure following coronary angiography was 18 mmHg. There was no pressure gradient on pullback across the aortic valve. LEFT VENTRICULAR ANGIOGRAPHY: Left ventricular angiography was carried out in the left anterior oblique projection. Global left ventricular systolic function is impaired. There is a posterobasal severe hypokinesis. Left ventricular ejection fraction is approximately 40%. CORONARY ANGIOGRAPHY: Coronary calcification is present. Left main coronary artery does not exhibit significant disease. Left anterior descending artery has 40% to 50% stenosis in its mid portion at the site of origin of the diagonal branch. Left circumflex artery had an 80% to 90% stenosis in its distal portion that was successfully stented with Concepción 2.75 x 18 mm stent. The right coronary artery is dominant and has a calcification and mid vessel stenosis of up to approximately 30%. CONCLUSIONS: 1. Coronary artery disease primarily consisting of 80% to 90% distal stenosis in the left circumflex that was successfully stented with Concepción 2.75 x 18 mm stent. The rest of the coronary arteries have diffuse mild to moderate calcification and plaque. 2. Elevated left ventricular end-diastolic pressure (18 mmHg). 3. Impairment of global left ventricular systolic function with an ejection fraction approximately 40% and with severe posterobasal hypokinesis. DISCUSSION AND RECOMMENDATIONS: Dual antiplatelet therapy has been added to the regimen. Beta brad is being continued. Lane inhibitors will be added if tolerated by blood pressure. Statin has been added. He has a history of atrial fibrillation for which he is on Eliquis. Eliquis is being held today and will be resumed tomorrow. To reduce the risk of bleeding, we will use aspirin only for a week and then stop it. Eliquis will be continued. Plavix will be continued for a year. After a course of Plavix has been completed, we will plan to switch him to aspirin. Job ID: [id number] DocumentID: [id number] Dictated Date: 02/07/2021 12:40:32 Watermelon Inspector Date: 02/07/2021 12:59:19 Dictated By: GRISELDA DE LA GARZA MD, MA, FACP, FACC,
[2021-02-07] MEDS: NS IV 1000 ML 1,000 ML IV SCH ×2 (14:06→22:16)
[2021-02-07] MEDS ORDERED: fentaNYL INJ 100 MCG/2 ML AMP IVP NR (14:15)
[2021-02-07] MEDS ORDERED: ATROPINE INJECTION 1 MG/10 ML SYR (ABBOTT) IV NR (14:15)
[2021-02-07] MEDS ORDERED: morphine INJ 4 MG/ML 1 ML (VIAL/SYRINGE) IVP PRN (17:15)
[2021-02-08 03:40] LABS: CHLORIDE 104 MMOL/L (98-107); POTASSIUM 4.4 MMOL/L (3.6-5.0); SODIUM 139 MMOL/L (135-145)
[2021-02-08 03:41] LABS: CALCIUM 8.8 MG/DL (8.5-10.1)
[2021-02-08 03:42] LABS: GLUCOSE 107 MG/DL (70-105); TRIGLYCERIDES 182 MG/DL (<150); VLDL CHOLESTEROL 36 MG/DL (5-40)
[2021-02-08 03:43] LABS: CARBON DIOXIDE 24 MMOL/L (21-32)
[2021-02-08 03:46] LABS: CREATININE SERUM 0.87 MG/DL (0.60-1.30); GFR ESTIMATED > 60
[2021-02-08 03:47] LABS: BUN/CREATININE RATIO 16; CHOLESTEROL 147 MG/DL (< 200)
[2021-02-08 03:48] LABS: HDL CHOLESTEROL 28 MG/DL (40-60); MAGNESIUM 2.2 MG/DL (1.6-2.4)
[2021-02-08] MEDS ORDERED: KCL 10 MEQ TAB (MICRO K) PO SCH (08:00)
--- NOTE | 2021-02-08 08:04 | Progress Note - Cardiology ---
Cardiology SOAP Progress Note Subjective: Sitting up in chair at the bedside States he feels good SOB has resolved No c/o CP, palpitations, syncope or near syncope No c/o right groin discomfort Objective: I&O/Vital Signs Side: right Groin site without hematoma: Yes Condition: DP/PT pulses palpable, extremity w/d/p Bruising: mild bruising Constitutional: AAO x 3, well-developed, well-nourished Respiratory: No accessory muscle use, No respiratory distress; chest expansion is symmetric, chest is bilaterally symmetric, lungs clear to auscultation Cardiovascular: regular rate-rhythm; No JVD; S1 and S2 Gastrointestional: No tender; soft, round, audible bowel sounds Extremities: no lower extremity edema bilateral Neurologic/Psychiatric: grossly intact (moves all extremities) Skin: No rash on exposed areas, No ulcerations on exposed areas Results/Procedures: Labs Microbiology 02/07/21 MRSA Screen - Final, Complete MRSA not isolated Procedures S/P cardiac cath with successful intervention on 02-07-21 A/P: Assessment: Coronary artery disease - primarily consisting of 80% to 90% distal stenosis in the left circumflex that was successfully stented with Concepción 2.75 x 18 mm stent. The rest of the coronary arteries have diffuse mild to moderate calcification and plaque. Elevated left ventricular end-diastolic pressure (18 mmHg). Impairment of global left ventricular systolic function with an ejection fraction approximately 40% and with severe posterobasal hypokinesis per cardiac cath of 02-07-21 Echocardiogram of 01-09-21 showed LVEF 35-40%. PASP 25-30mmHg ICM A Fib of undetermined age (demonstrated on ECG of 12/25/20 done during his ER visit of that date) Chronic back pain Obesity with BMI approx 46 Plan: S/P cardiac cath with successful intervention on 02-07-21 Ok to discharge home Continue OAC with Eliquis for PAF Continue anti-platelet tx d/t recent stent placement Continue statin and BB OK to discharge home with out pt f/u LIZETH CISSE Feb 08, 2021 08:04
[2021-02-08] MEDS ORDERED: LISI-729 PO (08:38)
[2021-02-08] MEDS ORDERED: ATOR40TA PO (08:38)
[2021-02-08] MEDS ORDERED: CLOP75TA28 PO (08:38)
[2021-02-08] MEDS ORDERED: NON-FORMULARY MEDICATION 1 EA EA (Potassium Chloride 10 MEQ) PO SCH (09:00)
[2021-02-08] MEDS ORDERED: CLOPIDOGREL 75 MG (PLAVIX) TABLET PO SCH (09:00)
[2021-02-08] MEDS ORDERED: meTOproloL SUCCINATE 50 MG (TOPROL XL) TAB PO SCH (09:00)
[2021-02-08] MEDS ORDERED: lisINopril 5 MG (PRINIVIL) TABLET PO SCH (09:00)
[2021-02-08] MEDS ORDERED: ASPIRIN 81 MG CHEW (CHILDREN'S ASA) PO SCH (09:00)
[2021-02-08] MEDS ORDERED: FUROSEMIDE 40 MG (LASIX) TAB PO SCH (09:00)
[2021-02-08] MEDS ORDERED: ASPI81TA64 PO (09:19)
--- NOTE | 2021-02-08 09:22 | Discharge Inst-Cardiology ---
Discharge Inst-Cardiac Discharge Medications New Medications: Aspirin (Children's Aspirin) 81 Mg Tab.chew 81 MG PO DAILY, #7 TAB 0 Refills Atorvastatin Calcium (Lipitor) 40 Mg Tablet 40 MG PO HS, #90 TAB 3 Refills Clopidogrel Bisulfate (Clopidogrel) 75 Mg Tablet 75 MG PO DAILY, #90 TAB 3 Refills Lisinopril (Lisinopril) 5 Mg Tablet 5 MG PO DAILY, #90 TAB 3 Refills Continued Medications: Apixaban (Eliquis) 5 Mg Tablet 5 MG PO BID, TAB Furosemide (Lasix) 40 Mg Tablet 40 MG PO DAILY, TAB Metoprolol Succinate (Metoprolol Succinate) 50 Mg Tab.er.24h 50 MG PO DAILY, TAB Potassium Chloride (Potassium Chloride) 10 Meq Tab.er.prt 10 MEQ PO DAILY New, Converted or Re-Newed RX: Transmitted to Pharmacy Patient Instructions Patient Instructions: Take ASA 81mg daily x 1 week and then stop Please schedule follow up appointment to see Dr. Harris in one week LIZETH CISSE Feb 08, 2021 09:22
--- NOTE | 2021-02-08 16:49 | Progress Note - Cardiology ---
Cardiology SOAP Progress Note Subjective: No cp or palp No shortness of breath at rest No n/v/d No groin or leg discomfort Objective: I&O/Vital Signs 02/08/21 02/08/21 02/08/21 02/08/21 05:00 06:00 07:35 07:50 Pulse 66 62 63 Resp 16 23 B/P (MAP) 148/85 (106) 121/81 (94) Pulse Ox 92 93 96 O2 Delivery Room Air Room Air Room Air 02/08/21 02/08/21 08:46 09:55 Temp 37.1 B/P (MAP) 02/08/21 00:00 Intake Total 300 ml Output Total 700 ml Balance -400 ml Side: right Groin site without hematoma: Yes Condition: DP/PT pulses palpable, extremity w/d/p Bruising: mild bruising Constitutional: AAO x 3, well-developed, well-nourished Respiratory: No accessory muscle use, No respiratory distress; chest expansion is symmetric, chest is bilaterally symmetric, lungs clear to auscultation Cardiovascular: regular rate-rhythm; No JVD; S1 and S2 Gastrointestional: No tender; soft, round, audible bowel sounds Extremities: no lower extremity edema bilateral Neurologic/Psychiatric: grossly intact (moves all extremities) Skin: No rash on exposed areas, No ulcerations on exposed areas Results/Procedures: Labs Laboratory Tests 02/08/21 03:07: Sodium Level 139, Potassium Level 4.4, Chloride Level 104, Carbon Dioxide Level 24, Anion Gap 11, Blood Urea Nitrogen 14, Creatinine 0.87, Estimat Glomerular Filtration Rate > 60, BUN/Creatinine Ratio 16, Glucose Level 107H, Calcium Level 8.8, Magnesium Level 2.2, Triglycerides Level 182H, Cholesterol Level 147, LDL Cholesterol Direct 94, VLDL Cholesterol 36, HDL Cholesterol 28L, Thyroid Stimulating Hormone (TSH) 2.18 Microbiology 02/07/21 MRSA Screen - Final, Complete MRSA not isolated Laboratory Tests 02/07/21 10:32 02/07/21 10:35 02/08/21 03:07 A/P: Assessment: Coronary artery disease - Cath 02-07-21: 80% to 90% distal stenosis in the left circumflex that was successfully stented with Concepción 2.75 x 18 mm stent. The rest of the coronary arteries have diffuse mild to moderate calcification and plaque. Elevated left ventricular end-diastolic pressure (18 mmHg). Impairment of global left ventricular systolic function with an ejection fraction approximately 40% and with severe posterobasal hypokinesis Echocardiogram of 01-09-21 showed LVEF 35-40%. PASP 25-30mmHg ICM A Fib of undetermined age (demonstrated on ECG of 12/25/20 done during his ER visit of that date) Chronic back pain Obesity with BMI approx 46 Plan: S/P cardiac cath with successful intervention on 02-07-21. Findings of cath and interventions discussed in detail Cardiac rehab advised. Continue OAC with Eliquis for PAF Continue anti-platelet tx d/t recent stent placement Continue statin and BB Questions answered and outpt f/u advised GRISELDA DE LA GARZA MD FACP FAC CCDS Feb 08, 2021 16:49
== END 2021-02-08 09:50 | disposition home or self-care (01) ==
LOC: CATH 10:06 → ICU 12:51 → CATH 02-08 09:50 → ICU 02-08 10:46
PROVIDERS: ATTEND Internal Medicine Cardiovascular Disease
DX: I25.10 Atherosclerotic heart disease of native coronary artery without angina pectoris (principal); I50.9 Heart failure, unspecified; E66.9 Obesity, unspecified; Z68.42 Body mass index [BMI] 45.0-49.9, adult; Z79.899 Other long term (current) drug therapy
CPT/HCPCS: 80048; 80053; 80061 ×2; 83735; 84443; 85027; 85610; 85730; 87081; 93005; 93458; C1769; C1874 ×3; C1887; C1894 ×2; C9600; 36415

== ENCOUNTER → 2021-05-02 | Outpatient (CLI) | payer MEDICARE ==
[~2021-05-02] MED LIST changes: +APIX5TAB PO; +ASPI81TA64 PO; +ATOR40TA PO; +CLOP75TA28 PO; +FURO-124 PO; -HEParin (CATH LAB) 2,000 ML IV ONE; -LIDOCAINE 1% INJ 20 ML 20 ML VIAL ONE; +LISI-729 PO; +METO50TA7 PO; -NS IV 1000 ML 1,000 ML ONE; +POTA10TA36 PO
[2021-05-02 12:24] LABS: ALBUMIN 4.3 GM/DL (3.2-4.5); BILIRUBIN,TOTAL 0.4 MG/DL (0.1-1.0); CALCIUM 9.7 MG/DL (8.5-10.1); CREATININE SERUM 0.97 MG/DL (0.60-1.30); POTASSIUM 4.2 MMOL/L (3.6-5.0); TOTAL PROTEIN 7.4 GM/DL (6.4-8.2)
== END ==
LOC: CARD 12:00
PROVIDERS: ATTEND Internal Medicine Cardiovascular Disease
DX: I51.7 Cardiomegaly (principal); I25.10 Atherosclerotic heart disease of native coronary artery without angina pectoris; I25.5 Ischemic cardiomyopathy; I50.22 Chronic systolic (congestive) heart failure
CPT/HCPCS: 36415; 80053; 80061; 83735; 84443; 93306

== ENCOUNTER 2021-05-26 09:15 | Outpatient (RCR) | payer MEDICARE | END 2021-05-28 | disposition home or self-care (01) | LOC: CR 09:15 | PROVIDERS: ATTEND Internal Medicine Cardiovascular Disease | DX: Z95.1 Presence of aortocoronary bypass graft (principal) | CPT/HCPCS: 93798 ==

== ENCOUNTER 2021-06-23 10:51 | Outpatient (RCR) | payer MEDICARE ==
[~2021-06-23 10:51] MED LIST changes: -LISI-729 PO; +LISI5TAB20 PO; -POTA10TA36 PO; +POTA10TA37 PO
== END 2021-08-31 | disposition home or self-care (01) ==
LOC: CR 10:51
PROVIDERS: ATTEND Internal Medicine Cardiovascular Disease
DX: Z95.5 Presence of coronary angioplasty implant and graft (principal)
CPT/HCPCS: 93798

== ENCOUNTER 2021-07-14 14:16 | Outpatient (RCR) | payer MEDICARE | END 2021-08-09 | disposition home or self-care (01) | LOC: CR3 14:16 | PROVIDERS: ATTEND Internal Medicine Cardiovascular Disease | DX: Z29.8 Encounter for other specified prophylactic measures (principal) ==

== ENCOUNTER → 2022-04-27 | Outpatient (CLI) | payer MEDICARE | LOC: CARD 10:00 | PROVIDERS: ATTEND Internal Medicine Cardiovascular Disease | DX: I51.7 Cardiomegaly (principal); I25.5 Ischemic cardiomyopathy | CPT/HCPCS: 93306 ==